=== PATIENT | female | born 1935 | race Caucasian/White ===

== ENCOUNTER → 2023-10-30 10:30 | Outpatient (REF) | payer OTHER, SELFPAY | LOC: HWRAD 10:30 | PROVIDERS: ATTENDING PHYSICIAN Student in an Organized Health Care Education/Training Program | DX: R10.13 Epigastric pain (principal) | CPT/HCPCS: 74176 ==

== ENCOUNTER → 2024-04-26 06:31 | Day surgery (SDC) | payer OTHER, SELFPAY | LOC: GI 06:31 | PROVIDERS: ATTENDING PHYSICIAN Internal Medicine Gastroenterology | DX: D50.0 Iron deficiency anemia secondary to blood loss (chronic) (principal); R19.4 Change in bowel habit; K64.0 First degree hemorrhoids; D49.0 Neoplasm of unspecified behavior of digestive system; K57.30 Diverticulosis of large intestine without perforation or abscess without bleeding; D12.6 Benign neoplasm of colon, unspecified; K63.89 Other specified diseases of intestine; K29.50 Unspecified chronic gastritis without bleeding | CPT/HCPCS: 45380; 43239; 88305; 88342 ==

== ENCOUNTER → 2024-05-26 10:00 | Outpatient (REF) | payer OTHER, SELFPAY | LOC: RCS 10:00 | PROVIDERS: ATTENDING PHYSICIAN Internal Medicine Cardiovascular Disease; FAMILY PHYSICIAN Student in an Organized Health Care Education/Training Program | DX: Z01.818 Encounter for other preprocedural examination (principal); I48.0 Paroxysmal atrial fibrillation; R53.83 Other fatigue; R01.1 Cardiac murmur, unspecified | CPT/HCPCS: 93306 ==

== ENCOUNTER 2024-06-04 10:53 | Inpatient (IN) | payer OTHER, SELFPAY ==
[2024-05-27 09:25] VITALS: BMI 31.0
[2024-05-27 10:37] LABS: Hematocrit 26.5 % (37.0-47.0); Hemoglobin 8.3 g/dL (12.0-16.0); Mean Corp Hgb Conc. 31.3 g/dL (33.0-37.0); Mean Corpuscular Hgb 25.9 pg (27.0-31.0); Mean Corpuscular Volume 82.8 fL (81.0-99.0); Mean Platelet Volume 11.5 fL (7.4-10.4); Platelet Count 269 10^3/uL (130-400); Red Cell Dist. Width 16.3 % (11.5-14.5)
[2024-05-27 10:51] LABS: INR 1.11; PT 14.3 Sec (11.4-14.6)
[2024-05-27 10:52] LABS: APTT 33.8 Sec (23.4-35.0)
[2024-05-27 11:24] LABS: ALT (SGPT) 17 U/L (0-35); AST (SGOT) 30 U/L (14-36); Albumin 4.1 g/dl (3.5-5.0); Alkaline Phosphatase 93 U/L (38-126); Blood Urea Nitrogen 27 mg/dl (7-17); Calcium 9.2 mg/dl (8.4-10.2); Carbon Dioxide 27 mmol/L (22-30); Chloride 104 mmol/L (98-107); Estimated Creatinine Clearance 28 ml/min; Glucose 102 mg/dl (70-99); Sodium 140 mmol/L (135-145); Total Bilirubin 0.6 mg/dl (0.2-1.3); Total Protein 6.4 g/dl (6.3-8.2)
[2024-06-04] VITALS (15 sets, daily range): BP systolic 134–188; BP diastolic 65–124; BMI 31.0
[2024-06-04] MEDS: TYLENOL 1000 MG PO (11:45)
[2024-06-04] MEDS: ENTEREG 12 MG PO (11:45)
[2024-06-04] MEDS: LOPRESSOR 25 MG PO (11:45)
[2024-06-04] MEDS: ZOFRAN 4 MG IV (16:06)
--- NOTE | 2024-06-04 16:06 | W.IMMPOSTOP ---
Surgical Immed Post Op Note
-
Primary Surgeon: Yovany Boland MD
Manager Winter: GARRETT Jackson
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
Post-op Diagnosis: Same
Procedure Performed: Robotic right colectomy with intracorporeal anastomosis
Anesthesia Type: GET
Specimen / Cultures: Right colon
Estimated Blood Loss: 15cc
Complications: None
Operative Findings: Multiple adhesions
3cm polypoid lesion in the terminal ileum
No evidence of metastatic disease
Patient's daughter updated.
[2024-06-04] MEDS: DILAUDID 0.25 MG IV ×4 (16:09→23:32)
[2024-06-04 17:10] LABS: Hematocrit 28.2 % (37.0-47.0); Hemoglobin 8.8 g/dL (12.0-16.0); Mean Corp Hgb Conc. 31.2 g/dL (33.0-37.0); Mean Corpuscular Hgb 26.9 pg (27.0-31.0); Mean Corpuscular Volume 86.2 fL (81.0-99.0); Mean Platelet Volume 11.5 fL (7.4-10.4); Platelet Count 217 10^3/uL (130-400); Red Blood Cell Count 3.27 10^6/uL (4.20-5.40); Red Cell Dist. Width 20.5 % (11.5-14.5); White Blood Cell Count 15.2 10^3/uL (4.8-10.8)
[2024-06-04 17:49] LABS: Blood Urea Nitrogen 17 mg/dl (7-17); Calcium 8.4 mg/dl (8.4-10.2); Carbon Dioxide 23 mmol/L (22-30); Chloride 108 mmol/L (98-107); Estimated Creatinine Clearance 41 ml/min; Glucose 175 mg/dl (70-99); Potassium 3.7 mmol/L (3.5-5.1); Sodium 146 mmol/L (135-145); eGFR > 60.00
--- NOTE | 2024-06-04 18:15 | PTCARENOTE ---
1750: Patient arrived to 2S. Full head to toe assessment completed. Lap sites on abdomen clean dry and intact and open to air. Patient on 4L NC with SpO2 greater than 92%. Dr. Cline made aware of patients BP 172/84. IVF running per order. Call
barrett within reach and bed in lowest position. Family at bedside.
--- NOTE | 2024-06-04 18:37 | CON.HOSP ---
Family Physician
-
Family Physician: Merry Clayton MD
Chief Complaint
-
medical consult
History of Present Illness
89-year-old female past medical history of ileocecal mass, paroxysmal atrial fibrillation hypertension, GERD, hiatal hernia, hypothyroidism, degenerative disc disease, fibromyalgia, irritable bowel disease, diverticulosis, obesity who underwent
robotic right colectomy with intracorporeal anastomosis for a neoplastic polyp of the terminal ileum.
Hospitalist consult for management of chronic medical conditions.
Medical History
Past Medical History
Past Medical History: Reports Other ( ileocecal mass, paroxysmal atrial fibrillation hypertension, GERD, hiatal hernia, hypothyroidism, degenerative disc disease, fibromyalgia, irritable bowel disease, diverticulosis, obesity)
Past Surgical History: Reports Other (Appendectomy, tonsillectomy, hysterectomy, gallbladder resection, ORIF left wrist fracture, right total knee arthroplasty, cervical laminectomy, right humerus fracture, M ILD procedure, left knee replacement)
Social History
Tobacco: Non-smoker
Alcohol: None
Drug: None
Allergies / Home Medications
Allergies reflects when Allergies were last updated in [facility].
Home Medications with original date entered in [facility]
Allergy/Medication List:
Allergies
Allergy/AdvReac Type Severity Reaction Status Date / Time
Iodinated Contrast Media Allergy Unknown Unknown Verified 06/04/24 11:17
penicillin G Allergy Itching Verified 06/04/24 11:17
Penicillins Allergy Itching Verified 06/04/24 11:17
hayfever Allergy nasal Uncoded 06/04/24 11:17
congestion
Home Medications
multivitamin (One-A-Day Essential tablet) 2 ea PO DAILY Supplement 03/26/20
duloxetine 60 mg capsule,delayed release 60 mg PO DAILY@1200 Mental Health/Anxiety 07/04/20
gabapentin 300 mg capsule 900 mg PO HS Neurological Condition 07/04/20
ipratropium bromide 21 mcg (0.03 %) nasal spray 1 spray intranasal DAILY Allergies 07/04/20
levothyroxine 75 mcg tablet 75 mcg PO DAILY AT 0700 Thyroid 07/04/20
atorvastatin 10 mg tablet 10 mg PO DAILY 10/31/21
cetirizine 10 mg tablet 10 mg PO DAILY 10/31/21
cholecalciferol (vitamin D3) 50 mcg (2,000 unit) tablet 4,000 units PO DAILY 10/31/21
bxtsjmpy-sgjyxj-kwdmj extract 5 mg-6 mg-150 mg capsule (Fruit and Vegetable Daily) 6 cap PO DAILY 10/31/21
vitamin B complex 2 tab PO DAILY 10/31/21
cyclobenzaprine 10 mg tablet 10 mg PO HS ##0 11/28/21
glucosamine-chondroitin 250 mg-200 mg tablet (Osteo Bi-Flex) 4 ea PO DAILY ##0 11/28/21
apixaban 5 mg tablet (Eliquis) 5 mg PO BID 05/27/24
diltiazem HCl 120 mg tablet (Cardizem) 120 mg PO DAILY 05/27/24
metoprolol succinate 25 mg capsule sprinkle, ext. release 24 hr 25 mg PO DAILY 05/27/24
pantoprazole 40 mg tablet,delayed release 40 mg PO DAILY 05/27/24
acetaminophen 500 mg tablet (Tylenol Extra Strength) 1,000 mg PO PRN PRN pain 05/28/24
docusate sodium 100 mg capsule 100 mg PO PRN PRN constipation 05/28/24
metronidazole 500 mg tablet 500 mg PO DIRECTED 05/28/24
neomycin 500 mg tablet 1 g PO DIRECTED 05/28/24
sodium sul 1.479 gram-potas ch 0.188 gram-magnes sul 0.225 gram tablet (Sutab) 0 tab PO PER PKG DIR 05/28/24
Review of Systems
-
History Source: Patient
A 12 point Review of Systems was completed except as noted: Yes
Constitutional: Reports No Symptoms
EENT: Reports No Symptoms
Respiratory: Reports No Symptoms
Cardiac: Reports No Symptoms
Abdomen/GI: Reports No Symptoms
: Reports No Symptoms
Musculoskeletal: Reports No Symptoms
Skin: Reports No Symptoms
Neurological: Reports No Symptoms
Endocrine: Reports No Symptoms
Hematologic/Lymphatic: Reports No Symptoms
Psych: Reports No Symptoms
Physical Exam
Vital Signs
Vital Signs
Temp Pulse Resp BP Pulse Ox
97.0 F 77 16 172/84 100
06/04/24 17:15 06/04/24 17:57 06/04/24 17:57 06/04/24 17:57 06/04/24 17:57
Physical Exam
General: Well Developed, Well Nourished and No Apparent Distress
HEENT: Normocephalic, Moist Mucous Membranes and Atraumatic
Respiratory: Clear
Cardiac: S1/S2 and Regular Rhythm; Negative Murmur or Rub
GI: Soft, Non Tender, Non Distended and Normal Bowel Sounds
Rectal: Deferred by Provider
Musculoskeletal: No Clubbing, No Cyanosis and No Edema
Skin: Negative Rash
Neuro: Nonfocal/Grossly Intact
Laboratory Results
-
Laboratory Results
06/04/24 16:53
06/04/24 16:53
PT 14.3 Sec (11.4-14.6) 05/27/24 08:16
INR 1.11 05/27/24 08:16
APTT 33.8 Sec (23.4-35.0) 05/27/24 08:16
Total Bilirubin 0.6 mg/dl (0.2-1.3) 05/27/24 08:16
AST 30 U/L (14-36) 05/27/24 08:16
ALT 17 U/L (0-35) 05/27/24 08:16
Alkaline Phosphatase 93 U/L (38-126) 05/27/24 08:16
Data Reviewed
-
Lab Data: Labs Reviewed
Old Records: Reviewed
Impression / Plan
-
IMPRESSION:
PLAN:
# Neoplastic polyp of the terminal ileum status post robotic right colectomy with intracorporeal anastomosis
-Clear liquid diet
-Management as per colorectal
-Oxycodone for pain
# Very mild hypernatremia
-Sodium 146
-Continue normal saline
# Hypertensive urgency likely secondary to pain
-Pain control
-As needed hydralazine if blood pressure greater than 180 systolic
Paroxysmal atrial fibrillation
-Hold Eliquis
-Continue Cardizem
-Continue metoprolol
Chronic anemia
-Hemoglobin of 8.8 higher than prior
-monitor
GERD/hiatal hernia status post Kory fundoplication
-Continue Protonix
Irritable bowel disease syndrome
Hypothyroidism
-Continue levothyroxine
Degenerative disc disease
-Continue gabapentin
Fibromyalgia
-Continue duloxetine
History of diverticulosis
Obesity
[2024-06-04] MEDS: TYLENOL 650 MG PO (21:00)
[2024-06-04] MEDS: NEURONTIN 900 MG PO (21:08)
[2024-06-04] MEDS: NSS 1000 IV (21:10)
[2024-06-04] MEDS: TYLENOL PO (23:17)
[2024-06-05 03:26] VITALS: BP 153/70
[2024-06-05] MEDS: ROXICODONE 5 MG PO (03:57)
[2024-06-05] MEDS: TYLENOL PO (05:05)
[2024-06-05] MEDS: SYNTHROID 75 MCG PO (05:12)
[2024-06-05] MEDS: MYLICON 80 MG PO (05:12)
[2024-06-05 05:23] LABS: % Basophils 0.1 % (0-2); % Immature Granulocytes 0.3 % (0-0.5); % Monocytes 5.8 % (1.7-9.3); % Neutrophils 87.8 % (42.2-75.2); Absolute Lymphocytes 0.6 10^3/uL (1.2-3.4); Absolute Monocytes 0.6 10^3/uL (0.1-0.6); Absolute Neutrophils 9.4 10^3/uL (1.4-6.5); Hematocrit 28.9 % (37.0-47.0); Mean Corp Hgb Conc. 31.1 g/dL (33.0-37.0); Mean Corpuscular Hgb 25.9 pg (27.0-31.0); Mean Corpuscular Volume 83.3 fL (81.0-99.0); Nucleated Red Blood Cells % 0 %; Platelet Count 206 10^3/uL (130-400); Red Blood Cell Count 3.47 10^6/uL (4.20-5.40); Red Cell Dist. Width 21.2 % (11.5-14.5); White Blood Cell Count 10.7 10^3/uL (4.8-10.8)
[2024-06-05 05:47] LABS: Blood Urea Nitrogen 15 mg/dl (7-17); Calcium 8.3 mg/dl (8.4-10.2); Carbon Dioxide 16 mmol/L (22-30); Chloride 114 mmol/L (98-107); Estimated Creatinine Clearance 41 ml/min; Glucose 136 mg/dl (70-99); Potassium 3.8 mmol/L (3.5-5.1); Sodium 145 mmol/L (135-145); eGFR > 60.00
[2024-06-05 06:00] VITALS: BMI 29.7
[2024-06-05 07:53] VITALS: BP 159/76
--- NOTE | 2024-06-05 08:07 | W.PN.HOSP.TC ---
Today's Communication/Plan
-
see plan
Assessment / Plan
Assessment / Plan
Gen: NAD, AAOx3.
Eyes: EOMI, PERRLA, no scleral icterus.
Neck: supple.
CV: RRR, +S1/S2, no m/r/g.
Resp: CTAB, no rales, wheezes, or rhonchi.
Abd: +BS, soft, R-sided TTP, ND
Skin: No rashes.
Neuro: CN 2-12 intact, non-focal.
Psych: Normal mood and affect.
Neoplastic polyp of the terminal ileum status post robotic right colectomy with intracorporeal anastomosis
-Clears
-Management as per colorectal
-Oxycodone/dilaudid for pain
Hypertensive urgency:
-likely secondary to pain
-Pain control
-Continue Cardizem/metoprolol
-PRN hydralazine
Paroxysmal atrial fibrillation
-Holding Eliquis, resume once OK with CRS
-Continue Cardizem/metoprolol
Other problems:
Chronic anemia: Hb stable
Very mild hypernatremia, resolved
GERD/hiatal hernia status post Kory fundoplication: cont PPI
Irritable bowel syndrome
Hypothyroidism: Continue levothyroxine
Degenerative disc disease: Continue gabapentin
Fibromyalgia: Continue duloxetine
History of diverticulosis
Obesity due to excess calories
Anticipated Discharge: 24 - 48 hours
Subjective/Interval History
-
Date of Service: June 05, 2024
Patient reports her abdomen is sore. No other new complaints.
Objective Data
-
Labs:
Laboratory Results
06/05/24
04:53
WBC 10.7
Hgb 9.0 L
Hct 28.9 L
Plt Count 206
Sodium 145
Potassium 3.8
Chloride 114 H
Carbon Dioxide 16 L
BUN 15
Creatinine 0.9
Glucose 136 H
Calcium 8.3 L
Vital Signs:
Vital Signs
Temp Pulse Resp BP Pulse Ox
98.2 F 71 14 159/76 100
06/05/24 07:53 06/05/24 07:53 06/05/24 07:53 06/05/24 07:53 06/05/24 07:53
I&O
06/04/24 06/05/24 06/06/24
06:59 06:59 06:59
Intake Total 1310 / 1310
Output Total 650 / 650
Balance 660 / 660
[2024-06-05] MEDS: TYLENOL 650 MG PO ×4 (08:52→20:14)
[2024-06-05] MEDS: ENTEREG 12 MG PO ×2 (08:52→20:14)
[2024-06-05] MEDS: CARDIZEM CD 120 MG PO (08:53)
[2024-06-05] MEDS: PROTONIX 40 MG PO (08:53)
[2024-06-05] MEDS: LIPITOR 10 MG PO (08:53)
[2024-06-05] MEDS: ZYRTEC 10 MG PO (08:53)
[2024-06-05] MEDS: TOPROL XL 25 MG PO (08:53)
--- NOTE | 2024-06-05 11:44 | W.PN.GS2 ---
Addendum entered and electronically signed by Enrique Jaffe MD 06/05/24 15:42:
I saw and examined the patient.
The Line Producer's note was reviewed and I agree with the note.
Comment: Denies flatus/BM, she is belching but denies n/v. Exam approp. Will cont CLD until more robust bowel function.
Original Note:
Today's Communication / Plan
-
Continue clears
OOB/Ambulate
Assessment / Plan
-
89 yo female with neoplastic polyp of the TI now POD #1 robotic right colectomy
AFVSS
Labs stable
Hospitalist following for medical management
Await return of bowel function
--Continue clear liquids as tolerated
--Scheduled and prn analgesics
--C/W IVF
--C/W home meds
--OOB/Ambulate. IS while awake
--Lovenox and SCDS for VTE ppx
Subjective Data
-
Date of Service: June 05, 2024
Patient seen and examined at bedside. Denies n/v. Not yet passing flatus. Some burping. Pain well controlled on current regimen but does note soreness
Objective Data
-
Intake and Output
06/04/24 06/05/24 06/06/24
06:59 06:59 06:59
Intake Total 1310 / 1310
Output Total 650 / 650
Balance 660 / 660
Intake:
IV fluids (Total) 1310 / 1310
Normosol 350 / 350
Output:
Urine, Cervantes 650 / 650
Vital Signs
Temp Pulse Resp BP Pulse Ox
98.2 F 71 14 159/76 100
06/05/24 07:53 06/05/24 08:53 06/05/24 07:53 06/05/24 08:53 06/05/24 07:53
Lab Results
06/05/24 04:53
06/05/24 04:53
Calcium 8.3 mg/dl (8.4-10.2) L 06/05/24 04:53
Total Bilirubin 0.6 mg/dl (0.2-1.3) 05/27/24 08:16
AST 30 U/L (14-36) 05/27/24 08:16
ALT 17 U/L (0-35) 05/27/24 08:16
Alkaline Phosphatase 93 U/L (38-126) 05/27/24 08:16
Total Protein 6.4 g/dl (6.3-8.2) 05/27/24 08:16
Albumin 4.1 g/dl (3.5-5.0) 05/27/24 08:16
Physical Exam
-
NAD
ABD soft, minimal incisional tenderness, nd
Incisions clear, dry, well approximated with some ecchymosis
Cervantes with clear, yellow urine
[2024-06-05 12:02] VITALS: BP 141/59
[2024-06-05] MEDS: CYMBALTA DELAYED RELEASE 60 MG PO (12:23)
[2024-06-05] MEDS: NSS 1000 IV ×2 (12:24→23:06)
--- NOTE | 2024-06-05 13:21 | CM ---
Patient seen at bedside. Patient daughter also present. patient stated that she has a split level home with walkers on each level and a chair lift going up the stairs. Patient stated that her physician is Dr. Clayton and she uses the [facility] in
[place] on [address] and patient plan is to return to home with [facility] if needed. Patient awaiting PT/OT assessment but is determined to go home. CM will continue to follow for discharge planning needs.
Plan; home with VN; will need referral to [facility] vs SNF pending therapy assessment
[2024-06-05 16:04] VITALS: BP 157/59
[2024-06-05] MEDS: LIDOCAINE 4% PATCH 1 PATCH TOPICAL (16:41)
[2024-06-05] MEDS: LOVENOX 40 MG SC (16:41)
[2024-06-05 19:21] VITALS: BP 145/74
[2024-06-05] MEDS: NEURONTIN 900 MG PO (20:15)
[2024-06-05 22:32] VITALS: BP 138/71
[2024-06-06] VITALS (7 sets, daily range): BP systolic 96–157; BP diastolic 55–70; PULSE 64; BMI 30.8
[2024-06-06] MEDS: TYLENOL PO (00:51)
[2024-06-06] MEDS: TYLENOL 650 MG PO ×6 (02:41→23:19)
[2024-06-06] MEDS: SYNTHROID 75 MCG PO (05:30)
[2024-06-06 08:38] LABS: Hematocrit 26.6 % (37.0-47.0); Hemoglobin 8.2 g/dL (12.0-16.0); Mean Corp Hgb Conc. 30.8 g/dL (33.0-37.0); Mean Corpuscular Hgb 27.3 pg (27.0-31.0); Mean Corpuscular Volume 88.7 fL (81.0-99.0); Mean Platelet Volume 11.4 fL (7.4-10.4); Platelet Count 187 10^3/uL (130-400); Red Cell Dist. Width 21.6 % (11.5-14.5); White Blood Cell Count 8.3 10^3/uL (4.8-10.8)
[2024-06-06] MEDS: ENTEREG 12 MG PO ×2 (08:46→20:23)
[2024-06-06] MEDS: PROTONIX 40 MG PO (08:46)
[2024-06-06] MEDS: LIPITOR 10 MG PO (08:46)
[2024-06-06] MEDS: LIDOCAINE 4% PATCH 1 PATCH TOPICAL (08:46)
[2024-06-06] MEDS: CARDIZEM CD 120 MG PO (08:47)
[2024-06-06] MEDS: TOPROL XL 25 MG PO (08:47)
[2024-06-06] MEDS: ZYRTEC 10 MG PO (08:48)
[2024-06-06 09:35] LABS: Blood Urea Nitrogen 16 mg/dl (7-17); Calcium 7.8 mg/dl (8.4-10.2); Carbon Dioxide 22 mmol/L (22-30); Chloride 114 mmol/L (98-107); Estimated Creatinine Clearance 46 ml/min; Glucose 100 mg/dl (70-99); Potassium 3.4 mmol/L (3.5-5.1); Sodium 144 mmol/L (135-145); eGFR > 60.00
--- NOTE | 2024-06-06 10:13 | W.PN.HOSP.TC ---
Today's Communication/Plan
-
see bold
Assessment / Plan
Assessment / Plan
Gen: NAD, AAOx3.
Eyes: EOMI, PERRLA, no scleral icterus.
Neck: supple.
CV: Remains RRR, +S1/S2, no m/r/g.
Resp: CTAB, no rales, wheezes, or rhonchi.
Abd: +BS, soft, nontender to light palpation,, ND
Skin: No rashes.
Neuro: Remains CN 2-12 intact, non-focal.
Psych: Normal mood and affect.
Neoplastic polyp of the terminal ileum status post robotic right colectomy with intracorporeal anastomosis
-cont clears
-Management as per colorectal
-Oxycodone/dilaudid for pain
Hypertensive urgency:
-likely secondary to pain
-Pain control
-Continue Cardizem/metoprolol
-start Lisinopril 10
-PRN hydralazine
Paroxysmal atrial fibrillation
-Holding Eliquis postoperatively, resume once OK with CRS
-Continue Cardizem/metoprolol
Other problems:
Hypokalemia: PO K, check Mg
Chronic anemia: Hb stable
Very mild hypernatremia, resolved
GERD/hiatal hernia status post Kory fundoplication: cont PPI
Irritable bowel syndrome
Hypothyroidism: Continue levothyroxine
Degenerative disc disease: Continue gabapentin
Fibromyalgia: Continue duloxetine
History of diverticulosis
Obesity due to excess calories
Discussed with surgery over [employer].
Anticipated Discharge: Within 24 hours
Subjective/Interval History
-
Date of Service: June 06, 2024
Reports abdomen is sore as opposed to painful as it was yesterday. Reports bowel movement overnight.
Objective Data
-
Labs:
Laboratory Results
06/06/24
08:15
WBC 8.3
Hgb 8.2 L
Hct 26.6 L
Plt Count 187
Sodium 144
Potassium 3.4 L
Chloride 114 H
Carbon Dioxide 22
BUN 16
Creatinine 0.8
Glucose 100 H
Calcium 7.8 L
Vital Signs:
Vital Signs
Temp Pulse Resp BP Pulse Ox
98.2 F 68 20 152/66 98
06/06/24 07:00 06/06/24 08:47 06/06/24 07:00 06/06/24 08:47 06/06/24 07:00
I&O
06/05/24 06/06/24 06/07/24
06:59 06:59 06:59
Intake Total 1310 / 1310 1210 / 1210 240 / 240
Output Total 650 / 650 600 / 600
Balance 660 / 660 610 / 610 240 / 240
[2024-06-06] MEDS: KCL ELIXIR 40 MEQ PO (10:33)
[2024-06-06] MEDS: ZESTRIL 10 MG PO (10:33)
[2024-06-06] MEDS: NSS 1000 IV (10:43)
[2024-06-06 10:47] LABS: Magnesium 2.5 mg/dl (1.6-2.3)
[2024-06-06] MEDS: CYMBALTA DELAYED RELEASE 60 MG PO (11:47)
--- NOTE | 2024-06-06 13:16 | W.PN.GS2 ---
Addendum entered and electronically signed by Enrique Jaffe MD 06/06/24 13:27:
I saw and examined the patient.
The Political Geographer's note was reviewed and I agree with the note.
Comment: Improving. OOBTC. Pain controlled. Denies n/v. Passing flatus and stool. C/o weakness. Hb has drifted down slightly, would defer A/C for today until Hb more stable. OK to ADAT to LRD. HLIV.
Original Note:
Today's Communication / Plan
-
ADAT
OOB/Ambulate
Assessment / Plan
-
89 yo female with neoplastic polyp of the TI now POD #2 robotic right colectomy
AFVSS
Labs stable but h/h drifting down. Acute on chronic anemia secondary to hemodilution, expected losses. Notes she was on iron infusions preop.
Hospitalist following for medical management
+flatus/stool
dawson out for voiding trial
--FLD, ADAT to LRD
--Scheduled and prn analgesics
--d/c IVF
--C/W home meds
--OOB/Ambulate/PT following. IS while awake
--Lovenox and SCDS for VTE ppx
will hold off on full AC today, will tentatively resume tomorrow if h/h stable
Subjective Data
-
Date of Service: June 06, 2024
Patient seen and examined at bedside with Dr. Jaffe. Denies n/v. Tolerating diet. OOB to chair. Notes some weakness. Has passed some stools/flatus. Pain well managed.
Objective Data
-
Intake and Output
06/05/24 06/06/24 06/07/24
06:59 06:59 06:59
Intake Total 1310 / 1310 1210 / 1210 240 / 240
Output Total 650 / 650 600 / 600
Balance 660 / 660 610 / 610 240 / 240
Intake:
Oral fluids 250 / 250 240 / 240
IV fluids (Total) 1310 / 1310 960 / 960
Normosol 350 / 350
Output:
Urine, Dawson 650 / 650 600 / 600
Other:
Number of approximated LARGE 1
amounts of urine
Vital Signs
Temp Pulse Resp BP Pulse Ox
98.2 F 55 18 141/55 94
06/06/24 10:59 06/06/24 10:59 06/06/24 10:59 06/06/24 10:59 06/06/24 10:59
Lab Results
06/06/24 08:15
06/06/24 08:15
Calcium 7.8 mg/dl (8.4-10.2) L 06/06/24 08:15
Magnesium 2.5 mg/dl (1.6-2.3) H 06/06/24 08:15
Total Bilirubin 0.6 mg/dl (0.2-1.3) 05/27/24 08:16
AST 30 U/L (14-36) 05/27/24 08:16
ALT 17 U/L (0-35) 05/27/24 08:16
Alkaline Phosphatase 93 U/L (38-126) 05/27/24 08:16
Total Protein 6.4 g/dl (6.3-8.2) 05/27/24 08:16
Albumin 4.1 g/dl (3.5-5.0) 05/27/24 08:16
Physical Exam
-
NAD
ABD soft, minimal incisional tenderness, nd
Incisions clear, dry, well approximated with some ecchymosis
[2024-06-06] MEDS: LOVENOX 40 MG SC (16:33)
[2024-06-06] MEDS: NEURONTIN 900 MG PO (22:12)
[2024-06-07] MEDS: TYLENOL 650 MG PO ×4 (03:06→21:24)
[2024-06-07 03:10] VITALS: BP 124/51
[2024-06-07] MEDS: SYNTHROID 75 MCG PO (05:41)
[2024-06-07 06:00] VITALS: BMI 30.9
[2024-06-07 06:48] LABS: Hematocrit 25.3 % (37.0-47.0); Hemoglobin 7.6 g/dL (12.0-16.0); Mean Corpuscular Hgb 26.5 pg (27.0-31.0); Mean Corpuscular Volume 88.2 fL (81.0-99.0); Mean Platelet Volume 11.7 fL (7.4-10.4); Platelet Count 188 10^3/uL (130-400); Red Blood Cell Count 2.87 10^6/uL (4.20-5.40); Red Cell Dist. Width 21.8 % (11.5-14.5); White Blood Cell Count 6.6 10^3/uL (4.8-10.8)
[2024-06-07 07:13] LABS: Blood Urea Nitrogen 19 mg/dl (7-17); Calcium 8.1 mg/dl (8.4-10.2); Carbon Dioxide 22 mmol/L (22-30); Chloride 111 mmol/L (98-107); Estimated Creatinine Clearance 41 ml/min; Glucose 99 mg/dl (70-99); Potassium 3.9 mmol/L (3.5-5.1); Sodium 143 mmol/L (135-145); eGFR > 60.00
[2024-06-07 07:25] VITALS: BP 102/78
[2024-06-07] MEDS: LIDOCAINE 4% PATCH 1 PATCH TOPICAL (08:07)
[2024-06-07] MEDS: LIPITOR 10 MG PO (08:07)
[2024-06-07] MEDS: PROTONIX 40 MG PO (08:08)
[2024-06-07] MEDS: ENTEREG 12 MG PO ×2 (08:08→21:24)
[2024-06-07] MEDS: ZYRTEC 10 MG PO (08:08)
[2024-06-07] MEDS: TOPROL XL 25 MG PO (08:08)
[2024-06-07] MEDS: CARDIZEM CD 120 MG PO (08:08)
[2024-06-07] MEDS: ZESTRIL 10 MG PO (08:08)
--- NOTE | 2024-06-07 08:53 | W.PN.HOSP.TC ---
Today's Communication/Plan
-
see bold
Assessment / Plan
Assessment / Plan
Neoplastic polyp of the terminal ileum status post robotic right colectomy with intracorporeal anastomosis 06/04/24
-Management as per colorectal, currently on LRD
-Oxycodone/dilaudid for pain
Hypertensive urgency:
-Likely secondary to pain. Continue pain control
-Continue Cardizem/metoprolol
-Blood pressure now controlled with starting lisinopril 10 mg daily 06/06
-PRN hydralazine
Paroxysmal atrial fibrillation
-Holding Eliquis postoperatively, resume once OK with CRS
-Continue Cardizem/metoprolol
Chronic anemia
-Hemoglobin was 7.6 yesterday, repeat 8.5, about her baseline of 8.3-8.8
-Continue to trend
Other problems:
Hypokalemia: Repleted and resolved
Very mild hypernatremia, resolved
GERD/hiatal hernia status post Kory fundoplication: cont PPI
Irritable bowel syndrome
Hypothyroidism: Continue levothyroxine
Degenerative disc disease: Continue gabapentin
Fibromyalgia: Continue duloxetine
History of diverticulosis
Obesity due to excess calories
DVT prophylaxis�SCDs, resume Eliquis when okay with colorectal surgery
Full code
Total time spent to see the patient on the floor, examine the patient, review data and lab results, discuss treatment plan with patient, nursing staff around 38 minutes.
Physical exam
Gen: NAD, AAOx3.
Eyes: EOMI, PERRLA, no scleral icterus.
Neck: supple.
CV: Remains RRR, +S1/S2, no m/r/g.
Resp: CTAB, no rales, wheezes, or rhonchi.
Abd: +BS, soft, nontender to light palpation, ND
Incisions clean/dry/intact
Skin: No rashes.
Neuro: Remains CN 2-12 intact, non-focal.
Psych: Normal mood and affect.
Anticipated Discharge: 24 - 48 hours
Subjective/Interval History
-
Date of Service: June 07, 2024
Patient denies chest pain, shortness of breath. Her abdominal pain is tolerable. She had a bowel movement. No nausea, no vomiting. No fever.
Objective Data
-
Labs:
Laboratory Results
06/07/24
04:22
WBC 6.6
Hgb 7.6 L
Hct 25.3 L
Plt Count 188
Sodium 143
Potassium 3.9
Chloride 111 H
Carbon Dioxide 22
BUN 19 H
Creatinine 0.9
Glucose 99
Calcium 8.1 L
Vital Signs:
Vital Signs
Temp Pulse Resp BP Pulse Ox
97.7 F 119 16 102/78 97
06/07/24 07:25 06/07/24 08:08 06/07/24 07:25 06/07/24 08:08 06/07/24 07:25
I&O
06/06/24 06/07/24 06/08/24
06:59 06:59 06:59
Intake Total 1210 / 1210 3380 / 3380
Output Total 600 / 600
Balance 610 / 610 3380 / 3380
[2024-06-07 11:42] LABS: % Basophils 0.4 % (0-2); % Eosinophils 3.7 % (0-6); % Immature Granulocytes 0.3 % (0-0.5); % Lymphocytes 11.9 % (20.5-51.1); % Monocytes 4.9 % (1.7-9.3); % Neutrophils 78.8 % (42.2-75.2); Absolute Eosinophils 0.3 10^3/uL (0-0.7); Absolute Lymphocytes 0.8 10^3/uL (1.2-3.4); Absolute Monocytes 0.3 10^3/uL (0.1-0.6); Absolute Neutrophils 5.3 10^3/uL (1.4-6.5); Hematocrit 28.1 % (37.0-47.0); Hemoglobin 8.5 g/dL (12.0-16.0); Mean Corp Hgb Conc. 30.2 g/dL (33.0-37.0); Mean Corpuscular Hgb 27.3 pg (27.0-31.0); Mean Corpuscular Volume 90.4 fL (81.0-99.0); Mean Platelet Volume 10.7 fL (7.4-10.4); Nucleated Red Blood Cells % 0 %; Platelet Count 188 10^3/uL (130-400); Red Blood Cell Count 3.11 10^6/uL (4.20-5.40); Red Cell Dist. Width 21.7 % (11.5-14.5); White Blood Cell Count 6.7 10^3/uL (4.8-10.8)
[2024-06-07] MEDS: CYMBALTA DELAYED RELEASE 60 MG PO (11:43)
[2024-06-07] MEDS: TYLENOL PO (11:44)
[2024-06-07 12:00] VITALS: BP 129/56
--- NOTE | 2024-06-07 12:58 | W.PN.CRS1 ---
Today's Communication / Plan
-
repeat cbc
will consider restarting eliquis after results
Assessment/Plan
-
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
AFVSS
Labs stable but h/h drifting down. Acute on chronic anemia secondary to hemodilution, expected losses. Notes she was on iron infusions preop. Has several more infusions to go as an outpatient.
Hospitalist following for medical management
+flatus/stool
Voiding post dawson removal
tachy this morning in 119's, EKG with HR in 60's.
--Continue low residue diet
--Scheduled and prn analgesics
--C/W home meds
--OOB/Ambulate/PT following. IS while awake
--Lovenox and SCDS for VTE ppx
--Hgb 7.6. Repeat CBC at noon. If stable, will consider restarting home Eliquis.
--OR pathology pending
--Tachycardic but resolved, patient with paroxysmal afib and is currently on Cardizem/metoprolol
--Appreciate hospitalist
--Likely d/c tomorrow
Subjective Data
Subjective Data
Date of Service: June 07, 2024
Patient states she feels 'good'. She has no nausea or vomiting. Her pain is controlled. She is urinating without difficulty. She has no complaints.
Objective Data
-
Vital Signs
Temp Pulse Resp BP Pulse Ox
97.8 F 60 16 129/56 99
06/07/24 12:00 06/07/24 12:00 06/07/24 12:00 06/07/24 12:00 06/07/24 12:00
Intake & Output
06/06/24 06/07/24 06/08/24
06:59 06:59 06:59
Intake Total 1210 / 1210 3380 / 3380
Output Total 600 / 600
Balance 610 / 610 3380 / 3380
Intake:
Oral fluids 250 / 250 2880 / 2880
IV fluids (Total) 960 / 960 500 / 500
Output:
Urine, Dawson 600 / 600
Other:
Number of approximated MODERATE 3
amounts of urine
Number of approximated LARGE 3
amounts of urine
Lab Results
06/07/24 11:27
06/07/24 04:22
Physical Exam
-
General: No Acute Distress and AOx3
Abdomen: Soft, Non Distended and Non Tender
Skin: Warm and Dry
Incision: Clear, Dry, Intact
--- NOTE | 2024-06-07 14:42 | CM ---
Case management following for discharge planning
Chart reviewed. Met with pt at bedside
PT recs - [facility]
Discussed with pt - prefers [facility]
Referral sent in [facility]
Will have ride home at time of discharge
Plan - anticipate home with [facility] when medically ready
[2024-06-07 15:00] VITALS: BP 152/58
[2024-06-07] MEDS: LOVENOX 40 MG SC (17:36)
[2024-06-07 19:22] VITALS: BP 140/48
[2024-06-07] MEDS: NEURONTIN 900 MG PO (21:25)
[2024-06-07 23:00] VITALS: BP 146/49
[2024-06-08] MEDS: TYLENOL PO (00:38)
[2024-06-08] MEDS: TYLENOL 650 MG PO ×4 (00:59→12:02)
[2024-06-08 03:42] VITALS: BP 139/61
[2024-06-08] MEDS: SYNTHROID 75 MCG PO (05:34)
[2024-06-08 07:19] LABS: % Basophils 0.5 % (0-2); % Immature Granulocytes 0.3 % (0-0.5); % Lymphocytes 20.8 % (20.5-51.1); % Monocytes 6.5 % (1.7-9.3); % Neutrophils 65.9 % (42.2-75.2); Absolute Eosinophils 0.4 10^3/uL (0-0.7); Absolute Lymphocytes 1.2 10^3/uL (1.2-3.4); Absolute Monocytes 0.4 10^3/uL (0.1-0.6); Absolute Neutrophils 3.8 10^3/uL (1.4-6.5); Hematocrit 27.1 % (37.0-47.0); Hemoglobin 8.2 g/dL (12.0-16.0); Mean Corp Hgb Conc. 30.3 g/dL (33.0-37.0); Mean Corpuscular Hgb 26.9 pg (27.0-31.0); Mean Corpuscular Volume 88.9 fL (81.0-99.0); Mean Platelet Volume 11.6 fL (7.4-10.4); Nucleated Red Blood Cells % 0 %; Platelet Count 180 10^3/uL (130-400); Red Blood Cell Count 3.05 10^6/uL (4.20-5.40); Red Cell Dist. Width 21.7 % (11.5-14.5); White Blood Cell Count 5.8 10^3/uL (4.8-10.8)
[2024-06-08 08:00] VITALS: BP 159/74
--- NOTE | 2024-06-08 08:49 | W.PN.HOSP.TC ---
Today's Communication/Plan
-
Continue lisinopril 10 mg daily upon discharge�new prescription sent to pharmacy
Assessment / Plan
Assessment / Plan
Neoplastic polyp of the terminal ileum status post robotic right colectomy with intracorporeal anastomosis 06/04/24
-Management as per colorectal, currently on LRD
-Oxycodone/dilaudid for pain
Hypertensive urgency:
-Likely secondary to pain. Continue pain control
-Continue Cardizem/metoprolol
-Blood pressure now controlled with starting lisinopril 10 mg daily 06/06 -continue upon discharge, prescription sent to pharmacy
-PRN hydralazine
Paroxysmal atrial fibrillation
-CRS cleared patient to resume Eliquis 06/08
-Continue Cardizem/metoprolol
Chronic anemia
-Hemoglobin was 8.2 today, was 8.5, about her baseline of 8.3-8.8
Other problems:
Hypokalemia: Repleted and resolved
Very mild hypernatremia, resolved
GERD/hiatal hernia status post Kory fundoplication: cont PPI
Irritable bowel syndrome
Hypothyroidism: Continue levothyroxine
Degenerative disc disease: Continue gabapentin
Fibromyalgia: Continue duloxetine
History of diverticulosis
Obesity due to excess calories
DVT prophylaxis�Eliquis
Full code
Total time spent to see the patient on the floor, examine the patient, review data and lab results, discuss treatment plan with patient, nursing staff around 38 minutes.
Updated daughter at bedside 06/08
Physical exam
Gen: NAD, AAOx3.
Eyes: EOMI, PERRLA, no scleral icterus.
Neck: supple.
CV: Remains RRR, +S1/S2, no m/r/g.
Resp: CTAB, no rales, wheezes, or rhonchi.
Abd: +BS, soft, nontender to light palpation, ND
Incisions clean/dry/intact
Skin: No rashes.
Neuro: Remains CN 2-12 intact, non-focal.
Psych: Normal mood and affect.
Anticipated Discharge: Today
Subjective/Interval History
-
Date of Service: June 08, 2024
Patient reports feeling weak. Abdominal pain is tolerable, and is only requiring Tylenol. No nausea, no vomiting. She is passing gas and stool. She is tolerating her low residue diet. No fever.
Objective Data
-
Labs:
Laboratory Results
06/08/24
04:22
WBC 5.8
Hgb 8.2 L
Hct 27.1 L
Plt Count 180
Vital Signs:
Vital Signs
Temp Pulse Resp BP Pulse Ox
97.8 F 66 18 139/61 96
06/08/24 03:42 06/08/24 03:42 06/08/24 03:42 06/08/24 03:42 06/08/24 03:42
I&O
06/07/24 06/08/24 06/09/24
06:59 06:59 06:59
Intake Total 3380 / 3380 1040 / 1040
Balance 3380 / 3380 1040 / 1040
[2024-06-08] MEDS: LIPITOR 10 MG PO (09:07)
[2024-06-08] MEDS: PROTONIX 40 MG PO (09:07)
[2024-06-08] MEDS: TOPROL XL 25 MG PO (09:07)
[2024-06-08] MEDS: ENTEREG 12 MG PO (09:08)
[2024-06-08] MEDS: CARDIZEM CD 120 MG PO (09:08)
[2024-06-08] MEDS: ZYRTEC 10 MG PO (09:08)
[2024-06-08] MEDS: ZESTRIL 10 MG PO (09:09)
[2024-06-08] MEDS: LIDOCAINE 4% PATCH 1 PATCH TOPICAL (09:09)
--- NOTE | 2024-06-08 11:51 | CM ---
Case management following for discharge planning
Met with pt and daughter at bedside
[facility] to follow for RN/PT - pt and family agree with plan
Daughter plans to stay with pt initially when discharged
Discussed IMM
Daughter to transport home
Plan - home with [facility]
f - [phone]
[2024-06-08 12:00] VITALS: BP 154/58
[2024-06-08] MEDS: ELIQUIS 5 MG PO (12:02)
[2024-06-08] MEDS: CYMBALTA DELAYED RELEASE 60 MG PO (12:02)
[2024-06-08 12:45] VITALS: BP 153/72
--- NOTE | 2024-06-08 12:53 | W.PN.CRS1 ---
Today's Communication / Plan
-
Discharge
Assessment/Plan
-
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
AFVSS
Labs stable but h/h drifting down. Acute on chronic anemia secondary to hemodilution, expected losses. Notes she was on iron infusions preop. Has several more infusions to go as an outpatient.
Hospitalist following for medical management
+flatus/stool
Voiding post dawson removal
Vitals normal today
--Continue low residue diet
--Scheduled and prn analgesics
--C/W home meds
--OOB/Ambulate/PT following. IS while awake
--Lovenox and SCDS for VTE ppx
--Hemoglobin is stable at 8.2. Apparently her baseline is 8.3-8.8. Restart Eliquis.
--OR pathology pending
--Appreciate hospitalist
--Okay for discharge with home visiting nurse. Discussed with patient daughter at bedside. All instructions discussed with patient including medications, activity levels, and follow-up.
Subjective Data
Subjective Data
Date of Service: June 08, 2024
Patient states she feels well today. She has no complaints. Her pain is controlled. She has no nausea or vomiting. Her pain is controlled.
Objective Data
-
Vital Signs
Temp Pulse Resp BP Pulse Ox
98.5 F 63 20 154/58 100
06/08/24 12:00 06/08/24 12:00 06/08/24 12:00 06/08/24 12:00 06/08/24 12:00
Intake & Output
06/07/24 06/08/24 06/09/24
06:59 06:59 06:59
Intake Total 3380 / 3380 1040 / 1040
Balance 3380 / 3380 1040 / 1040
Intake:
Oral fluids 2880 / 2880 1040 / 1040
IV fluids (Total) 500 / 500
Other:
Number of approximated MODERATE 3 2
amounts of urine
Number of approximated LARGE 3
amounts of urine
How many times incontinent 1
MODERATE amount urine
How many times incontinent 2
SATURATED amount urine
Lab Results
06/08/24 04:22
06/07/24 04:22
Physical Exam
-
General: No Acute Distress and AOx3
Abdomen: Soft, Non Distended and Non Tender
Skin: Warm and Dry
--- NOTE | 2024-06-08 13:19 | W.DS.TRANS ---
DC Summary - [employer]
-
Discharge Instructions:
Sleep Apnea Risk Low
Discharge Diagnosis/Procedures robotic right colectomy
Diet Low Residue
Activity No strenuous activity
Additional Activity No lifting over 10lbs (gallon of milk)
Driving Restrictions As prior to admission
Bathing Restrictions OK to Shower
Wound Care Allow glue to naturally fall off (do not pick at
incision).
Instructions: Low Fiber Diet
Stand-Alone Forms:
Changes to Home Medications: No
Discharge Medications:
DC Medications w/original date entered in [employer]
multivitamin (One-A-Day Essential tablet) 2 ea PO DAILY Supplement 03/26/20
duloxetine 60 mg capsule,delayed release 60 mg PO DAILY@1200 Mental Health/Anxiety 07/04/20
gabapentin 300 mg capsule 900 mg PO HS Neurological Condition 07/04/20
ipratropium bromide 21 mcg (0.03 %) nasal spray 1 spray intranasal DAILY Allergies 07/04/20
levothyroxine 75 mcg tablet 75 mcg PO DAILY AT 0700 Thyroid 07/04/20
atorvastatin 10 mg tablet 10 mg PO DAILY High Cholesterol 10/31/21
cetirizine 10 mg tablet 10 mg PO DAILY Allergies 10/31/21
cholecalciferol (vitamin D3) 50 mcg (2,000 unit) tablet 4,000 units PO DAILY Supplement 10/31/21
jfbgjduc-hzdexj-yerha extract 5 mg-6 mg-150 mg capsule (Fruit and Vegetable Daily) 6 cap PO DAILY Supplement 10/31/21
vitamin B complex 2 tab PO DAILY Supplement 10/31/21
cyclobenzaprine 10 mg tablet 10 mg PO HS ##0 11/28/21
glucosamine-chondroitin 250 mg-200 mg tablet (Osteo Bi-Flex) 4 ea PO DAILY ##0 11/28/21
apixaban 5 mg tablet (Eliquis) 5 mg PO BID Blood Clot Prevention/Tx 05/27/24
diltiazem HCl 120 mg tablet (Cardizem) 120 mg PO DAILY Blood Pressure 05/27/24
metoprolol succinate 25 mg capsule sprinkle, ext. release 24 hr 25 mg PO DAILY Blood Pressure 05/27/24
pantoprazole 40 mg tablet,delayed release 40 mg PO DAILY Gastrointestinal Issue 05/27/24
acetaminophen 500 mg tablet (Tylenol Extra Strength) 1,000 mg PO PRN PRN pain 05/28/24
Home Medication Changes
none
Pending Results: No
--- NOTE | 2024-06-08 14:58 | PTCARENOTE ---
D/c instructions reviewed with patient and her daughter. RN clarified with physician that patient is to continue Lisinopril at home.
== END 2024-06-08 15:25 | disposition home health service (06) | DRG 330 ==
LOC: 2 SOUTH 10:53
PROVIDERS: Physician Assistant; Registered Nurse; ADMITTING PHYSICIAN Surgery; FAMILY PHYSICIAN Student in an Organized Health Care Education/Training Program; OTHER PHYSICIAN Hospitalist
PROC: 8E0W4CZ Robotic Assisted Procedure of Trunk Region, Percutaneous Endoscopic Approach (ICD-10-PCS; 2024-06-04)
PROC: 0DTF4ZZ Resection of Right Large Intestine, Percutaneous Endoscopic Approach (ICD-10-PCS; 2024-06-04)
DX: D13.39 Benign neoplasm of other parts of small intestine (principal); E87.0 Hyperosmolality and hypernatremia; J84.9 Interstitial pulmonary disease, unspecified; I16.0 Hypertensive urgency; E03.9 Hypothyroidism, unspecified; E66.9 Obesity, unspecified; I10 Essential (primary) hypertension; D64.89 Other specified anemias; I48.0 Paroxysmal atrial fibrillation; J30.1 Allergic rhinitis due to pollen; K21.9 Gastro-esophageal reflux disease without esophagitis; K44.9 Diaphragmatic hernia without obstruction or gangrene; K57.30 Diverticulosis of large intestine without perforation or abscess without bleeding; K58.9 Irritable bowel syndrome, unspecified; N73.6 Female pelvic peritoneal adhesions (postinfective); M79.7 Fibromyalgia; Z79.01 Long term (current) use of anticoagulants; Z79.890 Hormone replacement therapy; Z79.899 Other long term (current) drug therapy; Z87.81 Personal history of (healed) traumatic fracture; Z90.49 Acquired absence of other specified parts of digestive tract; Z90.710 Acquired absence of both cervix and uterus; Z96.653 Presence of artificial knee joint, bilateral
CPT/HCPCS: 88309; 36415; 80048; 80053; 83036; 83735; 85025; 85027; 85610; 85730; 86850; 86900; 86901; 93005; 97116; 97162; J1335; P9045

== ENCOUNTER 2024-06-16 14:02 | Outpatient (RCR) | payer OTHER, SELFPAY ==
[2024-05-27] MEDS: VENOFER 110 MG IV (09:55)
[2024-05-27 10:10] VITALS: BP 168/49
[2024-05-31 10:00] VITALS: BP 166/72
[2024-05-31] MEDS: VENOFER 110 MG IV (10:20)
[2024-06-02 13:50] VITALS: BP 171/65
[2024-06-02] MEDS: VENOFER 110 MG IV (14:01)
[2024-06-02 15:15] VITALS: BP 116/60
[2024-06-11 14:15] VITALS: BP 151/55
[2024-06-11] MEDS: VENOFER 110 MG IV (14:25)
[2024-06-11 15:48] VITALS: BP 127/56
[2024-06-16] MEDS: VENOFER 110 MG IV (14:26)
[2024-06-16 14:40] VITALS: BP 145/55
[2024-06-16 15:26] VITALS: BP 137/53
== END 2024-06-17 10:53 | disposition home or self-care (01) ==
LOC: OID 14:02
PROVIDERS: ATTENDING PHYSICIAN Student in an Organized Health Care Education/Training Program
DX: D62 Acute posthemorrhagic anemia (principal)
CPT/HCPCS: 96365; J1756